=== PATIENT | female | born 1945 | race Caucasian/White ===

== ENCOUNTER → 2016-10-22 | Outpatient (CLI) | payer MEDICARE, OTHER ==
[~2016-10-22] MED LIST: DYAZ37.52 PO; KETO10 PO; LORT7.5T3 PO; SYNT25TA
[2016-10-22 09:23] LABS: BASOPHIL % 0.6 % (0.0-2.0); EOSINOPHIL # 0.2 TH/MM3 (0-0.4); EOSINOPHIL % 3.2 % (0.0-4.0); HEMATOCRIT 40.3 % (35.0-46.0); HEMO FLAGS DIFF FINAL; LYMPH % 39.3 % (9.0-44.0); LYMPHOCYTE # 2.5 TH/MM3 (1.0-4.8); MEAN CELL VOLUME 87.1 FL (80.0-100.0); MEAN CORPUSCULAR HEMOGLOBIN 29.2 PG (27.0-34.0); MEAN CORPUSCULAR HGB CONC 33.5 % (32.0-36.0); MONO % 10.2 % (0.0-8.0); NEUT % 46.7 % (16.0-70.0); PLATELET COUNT 234 TH/MM3 (150-450); RED BLOOD COUNT 4.63 MIL/MM3 (4.00-5.30); RED CELL DISTRIBUTION WIDTH 13.1 % (11.6-17.2); WHITE BLOOD COUNT 6.4 TH/MM3 (4.0-11.0)
[2016-10-22 10:12] LABS: ALKALINE PHOSPHATASE 58 U/L (45-117); ALT (GPT) 17 U/L (10-53); ANION GAP 8 MEQ/L (5-15); AST (GOT) 12 U/L (15-37); BLOOD UREA NITROGEN 32 MG/DL (7-18); CHLORIDE 103 MEQ/L (98-107); FREE T4 0.77 NG/DL (0.76-1.46); GLOMERULAR FILTRATION RATE 55 ML/MIN (>89); GLUCOSE,FASTING 92 MG/DL (74-99); HDL CHOLESTEROL 57.5 MG/DL (40.0-60.0); LDL CHOLESTEROL 107 MG/DL (0-99); POTASSIUM 3.9 MEQ/L (3.5-5.1); SODIUM (NA) 140 MEQ/L (136-145); TOTAL BILIRUBIN ADULT 0.7 MG/DL (0.2-1.0)
== END ==
LOC: PLAB 07:23
PROVIDERS: ATTEND Family Medicine
DX: E03.9 Hypothyroidism, unspecified (principal); I10 Essential (primary) hypertension; E78.4 Other hyperlipidemia
CPT/HCPCS: 36415; 80053; 80061; 84439; 84443; 85025

== ENCOUNTER → 2016-12-04 | Outpatient (CLI) | payer MEDICARE, OTHER | LOC: PLAB 06:53 | PROVIDERS: ATTEND Family Medicine | DX: M81.0 Age-related osteoporosis without current pathological fracture (principal); M85.9 Disorder of bone density and structure, unspecified | CPT/HCPCS: 36415; 82310 ==

== ENCOUNTER → 2017-02-18 | Outpatient (CLI) | payer MEDICARE, OTHER ==
[2017-02-18 09:46] LABS: ALKALINE PHOSPHATASE 64 U/L (45-117); ALT (GPT) 20 U/L (10-53); ANION GAP 7 MEQ/L (5-15); AST (GOT) 20 U/L (15-37); BICARBONATE 31.8 MEQ/L (21.0-32.0); BLOOD UREA NITROGEN 17 MG/DL (7-18); CHLORIDE 103 MEQ/L (98-107); FREE T4 0.86 NG/DL (0.76-1.46); GLOMERULAR FILTRATION RATE 68 ML/MIN (>89); GLUCOSE,FASTING 94 MG/DL (74-99); POTASSIUM 3.7 MEQ/L (3.5-5.1); SODIUM (NA) 142 MEQ/L (136-145); TOTAL BILIRUBIN ADULT 1.5 MG/DL (0.2-1.0)
== END ==
LOC: PLAB 06:47
PROVIDERS: ATTEND Family Medicine
DX: E78.5 Hyperlipidemia, unspecified (principal); E03.9 Hypothyroidism, unspecified
CPT/HCPCS: 36415; 80053; 84439; 84443

== ENCOUNTER → 2017-05-29 | Outpatient (CLI) | payer MEDICARE, OTHER ==
[2017-05-29 10:03] LABS: ANION GAP 7 MEQ/L (5-15); BICARBONATE 28.7 MEQ/L (21.0-32.0); BLOOD UREA NITROGEN 24 MG/DL (7-18); CHLORIDE 104 MEQ/L (98-107); GLOMERULAR FILTRATION RATE 61 ML/MIN (>89); GLUCOSE,FASTING 97 MG/DL (74-99); MAGNESIUM 2.4 MG/DL (1.5-2.5); POTASSIUM 3.7 MEQ/L (3.5-5.1); SODIUM (NA) 140 MEQ/L (136-145)
[2017-05-29 10:04] LABS: AST (GOT) 12 U/L (15-37)
[2017-05-29 10:15] LABS: ALKALINE PHOSPHATASE 58 U/L (45-117); ALT (GPT) 17 U/L (10-53); FREE T3 2.93 PG/ML (2.18-3.98); FREE T4 0.84 NG/DL (0.76-1.46); TOTAL BILIRUBIN ADULT 0.8 MG/DL (0.2-1.0)
== END ==
LOC: PLAB 07:58
PROVIDERS: ATTEND Family Medicine
DX: E03.9 Hypothyroidism, unspecified (principal); R25.2 Cramp and spasm
CPT/HCPCS: 36415; 80053; 83735; 84439; 84443; 84481

== ENCOUNTER → 2017-07-27 | Outpatient (CLI) | payer MEDICARE, OTHER ==
[2017-07-27 12:20] LABS: BICARBONATE 30.1 MEQ/L (21.0-32.0)
== END ==
LOC: PLAB 08:37
PROVIDERS: ATTEND Family Medicine
DX: M81.0 Age-related osteoporosis without current pathological fracture (principal)
CPT/HCPCS: 36415; 80048

== ENCOUNTER → 2017-09-15 | Outpatient (CLI) | payer MEDICARE, OTHER ==
[~2017-09-15] MED LIST changes: +CHOL1CHW6 CHEW; +CITRTAB7 PO; +COEN50CH CHEW; +DENO60P SQ; -DYAZ37.52 PO; -KETO10 PO; -LORT7.5T3 PO; -SYNT25TA; +THYR113. PO
[2017-09-15 13:30] LABS: AUTOMATED NEUTROPHIL # 3.4 TH/MM3 (1.8-7.7); BASOPHIL # 0.1 TH/MM3 (0-0.2); BASOPHIL % 0.8 % (0.0-2.0); EOSINOPHIL # 0.1 TH/MM3 (0-0.4); EOSINOPHIL % 1.9 % (0.0-4.0); HEMATOCRIT 40.2 % (35.0-46.0); HEMO FLAGS DIFF FINAL; LYMPH % 36.5 % (9.0-44.0); LYMPHOCYTE # 2.4 TH/MM3 (1.0-4.8); MEAN CORPUSCULAR HGB CONC 34.1 % (32.0-36.0); MONO % 8.8 % (0.0-8.0); PLATELET COUNT 271 TH/MM3 (150-450); RED BLOOD COUNT 4.57 MIL/MM3 (4.00-5.30); WHITE BLOOD COUNT 6.6 TH/MM3 (4.0-11.0)
[2017-09-15 13:45] LABS: ANION GAP 8 MEQ/L (5-15); AST (GOT) 11 U/L (15-37); BICARBONATE 28.6 MEQ/L (21.0-32.0); BLOOD UREA NITROGEN 28 MG/DL (7-18); CHLORIDE 102 MEQ/L (98-107); GLOMERULAR FILTRATION RATE 57 ML/MIN (>89); POTASSIUM 3.3 MEQ/L (3.5-5.1); SODIUM (NA) 139 MEQ/L (136-145)
[2017-09-15 13:46] LABS: RHEUMATOID FACTOR TRIGGER LESS THAN 10.0 IU/ML (0.0-14.9)
[2017-09-15 13:55] LABS: ALKALINE PHOSPHATASE 56 U/L (45-117); ALT (GPT) 16 U/L (10-53); FREE T3 6.09 PG/ML (2.18-3.98); FREE T4 0.93 NG/DL (0.76-1.46); TOTAL BILIRUBIN ADULT 0.9 MG/DL (0.2-1.0)
[2017-09-15 13:56] LABS: CREATINE KINASE 84 U/L (26-192)
[2017-09-15 14:14] LABS: WESTERGREN SEDIMENTATION RATE 6 mm/hr (0-30)
[2017-09-16 14:44] LABS: ANA SCREEN POS (NEG)
== END ==
LOC: PLAB 10:30
PROVIDERS: ATTEND Family Medicine
DX: R07.89 Other chest pain (principal); R52 Pain, unspecified; E03.9 Hypothyroidism, unspecified; E78.5 Hyperlipidemia, unspecified
CPT/HCPCS: 36415; 80053; 82550; 84439; 84443; 84481; 84484; 85025; 85652; 86038; 86039; 86430

== ENCOUNTER → 2017-09-22 | Outpatient (CLI) | payer MEDICARE, OTHER ==
[2017-09-25 03:49] LABS: ACTIN AB IGG <20 U
[2017-09-25 07:50] LABS: RHEUMATOID FACTOR 9 IU/mL (<14)
[2017-09-25 23:53] LABS: SCL-70 AB <1.0 NEG AI (<1.0 NEGATIVE)
[2017-09-26 03:50] LABS: C3 SERUM 118 mg/dL (90-180); C4 SERUM 25 mg/dL (ADULTS: 16-47)
== END ==
LOC: PLAB 13:44
PROVIDERS: ATTEND Family Medicine
DX: R76.8 Other specified abnormal immunological findings in serum (principal)
CPT/HCPCS: 36415; 83516; 86160; 86225; 86235; 86255; 86431

== ENCOUNTER → 2017-10-01 | Outpatient (CLI) | payer MEDICARE, OTHER ==
[2017-10-01 09:46] LABS: BICARBONATE 28.2 MEQ/L (21.0-32.0); CALCIUM 9.3 MG/DL (8.5-10.1); CREATININE 0.69 MG/DL (0.50-1.00); MAGNESIUM 2.4 MG/DL (1.5-2.5)
== END ==
LOC: PLAB 07:20
PROVIDERS: ATTEND Family Medicine
DX: E87.6 Hypokalemia (principal)
CPT/HCPCS: 36415; 80048; 83735

== ENCOUNTER → 2017-11-25 | Outpatient (CLI) | payer MEDICARE, OTHER ==
[2017-11-25 08:55] LABS: AUTOMATED NEUTROPHIL # 4.3 TH/MM3 (1.8-7.7); BASOPHIL % 0.6 % (0.0-2.0); EOSINOPHIL # 0.2 TH/MM3 (0-0.4); HEMATOCRIT 42.9 % (35.0-46.0); HEMOGLOBIN 14.2 GM/DL (11.6-15.3); LYMPH % 33.4 % (9.0-44.0); LYMPHOCYTE # 2.6 TH/MM3 (1.0-4.8); MEAN CELL VOLUME 89.9 FL (80.0-100.0); MEAN CORPUSCULAR HEMOGLOBIN 29.9 PG (27.0-34.0); MEAN CORPUSCULAR HGB CONC 33.2 % (32.0-36.0); MEAN PLATELET VOLUME 7.9 FL (7.0-11.0); MONO % 8.7 % (0.0-8.0); MONOCYTE # 0.7 TH/MM3 (0-0.9); NEUT % 54.3 % (16.0-70.0); PLATELET COUNT 277 TH/MM3 (150-450); RED BLOOD COUNT 4.77 MIL/MM3 (4.00-5.30); RED CELL DISTRIBUTION WIDTH 14.2 % (11.6-17.2); WHITE BLOOD COUNT 7.8 TH/MM3 (4.0-11.0)
[2017-11-25 09:18] LABS: ALBUMIN 3.4 GM/DL (3.4-5.0); AST (GOT) 21 U/L (15-37); BICARBONATE 31.6 MEQ/L (21.0-32.0); BLOOD UREA NITROGEN 26 MG/DL (7-18); CALCIUM 8.9 MG/DL (8.5-10.1); CHLORIDE 104 MEQ/L (98-107); CREATININE 0.78 MG/DL (0.50-1.00); GLOMERULAR FILTRATION RATE 73 ML/MIN (>89); GLUCOSE,FASTING 95 MG/DL (74-99); SODIUM (NA) 140 MEQ/L (136-145)
[2017-11-25 09:19] LABS: CHOLESTEROL 175 MG/DL (120-200)
[2017-11-25 09:29] LABS: ALKALINE PHOSPHATASE 56 U/L (45-117); ALT (GPT) 20 U/L (10-53); CHOLESTEROL/ HDL RATIO 2.47 RATIO; FREE T4 0.81 NG/DL (0.76-1.46); HDL CHOLESTEROL 70.6 MG/DL (40.0-60.0); LDL CHOLESTEROL 95 MG/DL (0-99); TOTAL BILIRUBIN ADULT 0.7 MG/DL (0.2-1.0); TOTAL PROTEIN 6.8 GM/DL (6.4-8.2); TRIGLYCERIDES 49 MG/DL (42-150)
== END ==
LOC: PLAB 07:05
PROVIDERS: ATTEND Family Medicine
DX: E78.5 Hyperlipidemia, unspecified (principal); E03.9 Hypothyroidism, unspecified; M81.0 Age-related osteoporosis without current pathological fracture; M89.9 Disorder of bone, unspecified
CPT/HCPCS: 36415; 80053; 80061; 82306; 84439; 84443; 85025